=== PATIENT | female | born 1990 | race African-American/Black ===

== ENCOUNTER 2017-09-09 22:54 | Emergency (ER) | payer SELFPAY | END 2017-09-09 23:49 | disposition home or self-care (01) | LOC: ERS 22:54 | DX: Z30.431 Encounter for routine checking of intrauterine contraceptive device (principal) | CPT/HCPCS: 99283 ==

== ENCOUNTER 2020-08-03 03:58 | Emergency (ER) | payer MEDICAID, SELFPAY ==
[2020-08-03 05:01] LABS: #Eosinphils 0.1 thou/uL (0.0-0.7); #Monocytes 0.6 thou/uL (0.11-0.59); #Neutrophils 2.5 thou/uL (1.40-6.50); %Basophils 0.2 % (0.0-1.0); %Eosinophils 1.1 % (0.0-10.0); %Lymphocytes 38.7 % (21.0-51.0); %Monocytes 11.9 % (0.0-10.0); %Neutrophils 48.1 % (42.0-75.0); Hemoglobin 10.1 g/dL (12.0-16.0); Mean Corpuscular HGB CONC 33.1 g/dL (32.0-36.0); Mean Corpuscular Hemoglobin 26.8 pg (27.0-31.0); Mean Corpuscular Volume 80.9 fL (78.0-98.0); Mean Platelet Volume 8.5 fL (7.4-10.4); Platelet Count 252 thou/uL (130-400); RBC Distribution Width 15.1 % (11.5-14.5); Red Blood Cell (RBC) Count 3.79 mill/uL (4.20-5.40); White Blood Cell (WBC) Count 5.2 thou/uL (4.8-10.8)
[2020-08-03 05:02] LABS: Bilirubin Negative (Negative); Blood, Urine Negative (Negative); Clarity Clear (Clear); Glucose, Urine (Dipstick) Normal (Negative); Ketone, Urine Negative (Negative); Leukocyte Negative Leu/uL (Negative); Nitrite Negative (Negative); Protein, Urine (Dipstick) Negative (Neg-Trace); Specific Gravity, Urine 1.023 (1.002-1.036); Urobilinogen Normal mg/dL (Less than 2)
--- NOTE | 2020-08-03 12:02 | ULT ---
PRELIMINARY REPORT/DIRECT RADIOLOGY/EMERGENCY AFTER HOURS PROCEDURE: EXAM: US Obstetrical, Complete <14 weeks CLINICAL HISTORY: HX: VAG SPOTTING X 3DAYS. TECHNIQUE: Transvaginal and transabdominal imaging of the maternal pelvis and a <14 week gestation [facility] image documentation. COMPARISON: None provided. FINDINGS: GESTATION: An intrauterine gestation is noted with a CRL of 4.3 mm corresponding to 6 weeks 1 day how ever there is no evidence for heartbeat at this time. A 1.6 x 0.7 cm gladys-gestational hemorrha ge is noted UTERUS: Unremarkable. No myometrial mass. Measures 11.3 x 6.8 x 7.2 cm CERVIX: Closed. Unremarkable. OVARIES: Unremarkable. No mass. The RIGHT ovary measures 3.1 x 1.4 x 1.5 cm and the LEFT side measur es 4.5 x 3.0 x 4.5 cm demonstrating a 2.9 x 2.7 x 3.2 cm cyst FREE FLUID: Mild free fluid. IMPRESSION: Early intrauterine gestation with a small gladys-gestational hemorrhage ELECTRONICALLY SIGNED BY: Octavio Peterson MD Aug 03, 2020 5:58:16 AM [facility] LAB TECHNICIAN FINAL REPORT PELVIC ULTRASOUND: Transabdominal and endovaginal ultrasound performed. HISTORY: Vaginal spotting. FINDINGS: A 6-week viable intrauterine . Evidence of a small area of subchorionic hemorrhage. I am in agreement with the preliminary report. POS: PRESTON
== END 2020-08-03 06:30 | disposition home or self-care (01) ==
LOC: ERS 03:58
DX: O20.0 Threatened abortion (principal); Z3A.08 8 weeks gestation of pregnancy
CPT/HCPCS: 36415; 76856; 81003; 84702; 85025; 86900; 86901

== ENCOUNTER 2020-08-18 10:41 | Emergency (ER) | payer MEDICAID ==
[2020-08-18 11:27] LABS: #Eosinphils 0.1 thou/uL (0.0-0.7); #Monocytes 0.7 thou/uL (0.11-0.59); #Neutrophils 6.5 thou/uL (1.40-6.50); %Basophils 0.4 % (0.0-1.0); %Eosinophils 0.6 % (0.0-10.0); %Lymphocytes 29.1 % (21.0-51.0); %Neutrophils 62.9 % (42.0-75.0); Hemoglobin 9.7 g/dL (12.0-16.0); Mean Corpuscular HGB CONC 33.7 g/dL (32.0-36.0); Mean Corpuscular Hemoglobin 27.6 pg (27.0-31.0); Mean Corpuscular Volume 81.9 fL (78.0-98.0); Mean Platelet Volume 8.3 fL (7.4-10.4); Platelet Count 292 thou/uL (130-400); RBC Distribution Width 14.8 % (11.5-14.5); Red Blood Cell (RBC) Count 3.52 mill/uL (4.20-5.40); White Blood Cell (WBC) Count 10.4 thou/uL (4.8-10.8)
[2020-08-18 11:50] LABS: ALT (SGPT) Less than 7 U/L (8-55); AST (SGOT) 10 U/L (5-34); Albumin 3.7 g/dL (3.5-5.0); Alkaline Phosphatase 64 U/L (40-110); Anion Gap 15 mmol/L (10-20); BUN (Urea Nitrogen) 11 mg/dL (7.0-18.7); Bilirubin, Total 0.2 mg/dL (0.2-1.2); Calc. Creatinine Clearance 0 mL/min (70-130); Calcium 8.3 mg/dL (7.8-10.44); Carbon Dioxide 20 mmol/L (22-29); Chloride 107 mmol/L (98-107); Globulin 3.4 g/dL (2.4-3.5); Glucose 166 mg/dL (70-105); Protein, Total 7.1 g/dL (6.0-8.3); Sodium 139 mmol/L (136-145)
--- NOTE | 2020-08-18 12:56 | ULT ---
US Pelvic Transvag History: Pelvic pain. Recent miscarriage Comparison: Pelvic ultrasound August 03, 2020 Findings: Real-time grayscale, color and spectral analysis of the pelvis was performed transabdominal and transvaginal approach. No normal intrauterine . Extensive debris within the endometrial cavity. Small cysts left ov papo. Small volume free fluid within the endocervical cavity. Technologist questionably sees the gestational sac within the cervix with dysplastic pole and n o heart tones. Right ovary is not well seen. Impression: Possible gestational sac within the cervix, and an abnormal location, with no heart tones of a possible dysplastic pole. Close follow-up hCG and ultrasound recommended.
[2020-08-18] MEDS ORDERED: Misoprostol 200 MCG TAB PR SCH (14:30)
--- NOTE | 2020-08-18 14:31 | PDOC.BPN ---
- Brief Progress Note BED 15 Patient seen at bedside. Tissue sent to path (per vagina). See full dictation. RH pos HCT 30 Removed POC from CX with ring forceps.
[2020-08-18] MEDS ORDERED: Ketorolac Tromethamine 30 MG/ML VIAL ONE (14:48)
--- NOTE | 2020-08-18 15:20 | CON ---
DATE OF CONSULTATION: 08/18/2020 TIME OF EVALUATION: Roughly 1410 hours until about 1430 hours. LOCATION: ER bed 15. REQUESTING PHYSICIAN: ER provider. CHIEF COMPLAINT: Vaginal Bleeding this AM REASON FOR EVALUATION: History of Cytotec/misoprostol use in the first trimester with vaginal bleeding increasing this morning (possible retained products). This is a patient of Dr. May at [facility]. HISTORY OF PRESENT ILLNESS: In brief, this patient is a 29-year-old, G8, P7, with seven previous vaginal deliveries, who was about 8 weeks by ultrasound when she was first diagnosed with a miscarriage by Dr. May earlier in the month. She states that, that physician gave her Cytotec (misoprostol) and she took 4 tablets on 08/05 and then was told to take another 4 about 24 to 48 hours later and she took them on 08/07. She states that she did have some vaginal bleeding and some tissue pass back then, but it had stopped, and this morning, she has started to have increasing cramps and further vaginal bleeding that became heavy this morning. She passed small amount of clots. She denies any shortness of breath, chest pain, or loss of consciousness or syncope. REVIEW OF SYSTEMS: GENERAL: She denies any fevers or sick contacts. CARDIOVASCULAR: Negative for chest pain. PULMONARY: Negative for shortness of breath. ABDOMEN: Negative for GI issues. : She did have some positive complaints of vaginal bleeding as per HPI and some cramping. EXTREMITIES: No complaint of swelling or pain in the lower extremities. PAST MEDICAL HISTORY: Negative. MEDICATIONS: Include a recent Cytotec use as described in the HPI, but that is all. PAST SURGICAL HISTORY: None. ALLERGIES: IODINE. SHE STATES THAT SHE ALSO HAS SOME ANTIBIOTIC ALLERGIES, BUT SHE IS NOT CLEAR WHAT THEY ARE AND SHE WILL LOOK FOR THEM IN HER [facility] BECAUSE SHE BELIEVES THEY ARE THERE. I DID THROW OUT SOME NAMES OF ANTIBIOTICS, BUT SHE WAS NOT SURE IF THOSE WERE CORRECT OR NOT. OB HISTORY: She has had prior 7 vaginal deliveries and this is a known miscarriage diagnosed first at [facility]. LABORATORY DATA: Here, her hematocrit value was 30 and her Rh type is A positive per the ED provider. IMAGING STUDIES: Ultrasound was performed today, which shows possible small gestational sac that is collapsed at the cervix about to pass for a miscarriage. PHYSICAL EXAMINATION: I find the patient to be in no acute distress. VITAL SIGNS: Pulse of 81, she was 100% O2 saturation, and her blood pressure was 84/72, and she was getting a liter of LR hydration. GENERAL: She was alert and oriented. ABDOMEN: Soft and nontender. PELVIC: She did have about a 50 mL blood clot in the vagina, which I swabbed away. Vaginal exam was performed with a speculum exam. Her cervix was not really dilated, but I was able to pass the ring forceps, just past the external cervical os and was able to remove a collapsed gestational sac. The bleeding almost instantaneously resolved with this maneuver. This was put in a formalin jar and sent to Pathology and I ordered the pathology request myself. PROCEDURE NOTE: After informed consent was obtained verbally by me, I explained to the patient that I was going to place a speculum inside the vagina for visualization of the cervix, she understood. I did explain to her that a D and C might be necessary if the intervention in the ER did not stop the bleeding. I was able to visualize the cervix, and using rings, extract a collapsed sac from the external cervical os. I did not enter the uterus because this was just past the external cervical os. When I removed this tissue, bleeding quickly abated/reduced. ASSESSMENT: This is a 29-year-old, G8, P7 with a history of first trimester known miscarriage, who used Cytotec in the past, last use on 08/07, now with likely a completed miscarriage with my removal of tissue through the cervical os. This is what looks like a collapsed sac. Bleeding seems to have been resolved. She is hemodynamically stable, although her blood pressure is a little low. She is non-tachycardic. PLAN: 1. Tissue to path. 2. Rh positive status, so no RhoGAM. 3. I have ordered Cytotec 200 mcg four tablets to be placed in the vagina and I have requested that they be moistened. I did explain this to the RN, who was in the room. 4. She is to verify, which antibiotics she is allergic to, to avoid those. 5. I have requested doxycycline 100 mg p.o. b.i.d. x3 days, and if she is allergic to that, we will go to Flagyl 500 mg p.o. b.i.d. for three days just because I am not sure how long this tissue has been retained and I did instrument the cervix. 6. I did request that she follow up with her Dr. May. 7. She is stable and does not require D and C or blood transfusion at this time. Job ID: [id number] MTDD
== END 2020-08-18 16:15 | disposition home or self-care (01) ==
LOC: ERS 10:41
DX: O03.4 Incomplete spontaneous abortion without complication (principal)
CPT/HCPCS: 36415; 76856; 80053; 84702; 85025; 88305; 96374; J1885

== ENCOUNTER 2021-08-31 01:47 | Emergency (ER) | payer OTHER, MEDICAID ==
[2021-08-31] MEDS ORDERED: Ondansetron ODT 4 MG TAB ONE (02:42)
[2021-08-31 12:45] LABS: SARS-CoV-2 PCR by NAA Not Detected (NotDetected)
== END 2021-08-31 03:30 | disposition home or self-care (01) ==
LOC: ERS 01:47
DX: R05.9 Cough, unspecified (principal); M79.10 Myalgia, unspecified site; Z20.822 Contact with and (suspected) exposure to COVID-19
CPT/HCPCS: 99284; Q0162; U0003; U0005

== ENCOUNTER 2022-01-16 14:27 | Emergency (ER) | payer OTHER ==
[2022-01-16 16:02] LABS: #Lymphocytes 1.5 thou/uL (1.20-3.40); #Monocytes 0.4 thou/uL (0.11-0.59); #Neutrophils 3.6 thou/uL (1.40-6.50); %Basophils 0.5 % (0.0-1.0); %Eosinophils 0.3 % (0.0-10.0); %Lymphocytes 26.6 % (21.0-51.0); %Monocytes 7.4 % (0.0-10.0); %Neutrophils 65.1 % (42.0-75.0); Mean Corpuscular HGB CONC 33.5 g/dL (32.0-36.0); Mean Corpuscular Hemoglobin 29.9 pg (27.0-31.0); Mean Corpuscular Volume 89.2 fL (78.0-98.0); Mean Platelet Volume 7.5 fL (7.4-10.4); Platelet Count 273 thou/uL (130-400); RBC Distribution Width 12.2 % (11.5-14.5); Red Blood Cell (RBC) Count 4.36 mill/uL (4.20-5.40); White Blood Cell (WBC) Count 5.5 thou/uL (4.8-10.8)
[2022-01-16 16:21] LABS: ALT (SGPT) 7 U/L (8-55); AST (SGOT) 14 U/L (5-34); Albumin 4.3 g/dL (3.5-5.0); Alkaline Phosphatase 85 U/L (40-110); Anion Gap 15 mmol/L (10-20); BUN (Urea Nitrogen) 9 mg/dL (7.0-18.7); Bilirubin, Total 1.1 mg/dL (0.2-1.2); Calc. Creatinine Clearance 0 mL/min (70-130); Calcium 9.2 mg/dL (7.8-10.44); Carbon Dioxide 21 mmol/L (22-29); Chloride 105 mmol/L (98-107); Globulin 3.7 g/dL (2.4-3.5); Glucose 87 mg/dL (70-105); Potassium 3.5 mmol/L (3.5-5.1); Sodium 137 mmol/L (136-145)
[2022-01-16 16:21] LABS: Pregnancy Test - Urine (BHCG) Negative (Negative); Pregu Control Background? CLEAR/WHITE (CLR/WHITE); Pregu Control Bar Appear? YES (CONTROL BAR); Specific Gravity 1.014 (1.002-1.036)
[2022-01-16 16:22] LABS: Acetaminophen Less than 10.0 mcg/mL (10.0-30.0); Alcohol Less than 10 mg/dL (Less than 10); Salicylate Less than 8.0 mg/dL (15.0-30.0)
[2022-01-16 16:29] LABS: Amphetamine Not Detected (NotDetected); Barbiturates Screen Not Detected (NotDetected); Benzodiazepine Screen Not Detected (NotDetected); Cocaine Metabolite Screen Not Detected (NotDetected); Methadone Not Detected (NotDetected); Methamphetamine Not Detected (NotDetected); Opiate Screen Not Detected (NotDetected); Oxycodone Screen Not Detected (NotDetected); Phencyclidine (PCP) Not Detected (NotDetected); THC/Cannabinoid Screen Not Detected (NotDetected); Tricyclic Screen Not Detected (NotDetected)
== END 2022-01-16 21:49 | disposition home or self-care (01) ==
LOC: ERS 14:27
DX: F43.0 Acute stress reaction (principal); R45.851 Suicidal ideations
CPT/HCPCS: 36415; 80053; 80306; 80307; 81025; 84702; 85025; 86900; 86901; 93005